=== PATIENT | female | born 1960 | race Caucasian/White ===

== ENCOUNTER 2017-07-25 05:47 | Observation (INO) | payer OTHER ==
[~2017-07-25] VITALS: Ht 172.7 cm; Wt 71.7 kg
[2017-07-25] MEDS ORDERED: MULT-65 PO (06:16)
[2017-07-25] MEDS ORDERED: LANS30CA PO (06:16)
[2017-07-25] MEDS ORDERED: OXYC1TAB63 PO (06:16)
[2017-07-25] MEDS ORDERED: TRAZ50TA12 PO (06:16)
[2017-07-25] MEDS ORDERED: HYDR25TA5 PO (06:16)
[2017-07-25] MEDS ORDERED: METF500T PO (06:16)
[2017-07-25] MEDS ORDERED: DULO1CAP3 PO (06:16)
[2017-07-25] MEDS ORDERED: CYAN1TAB24 PO (06:16)
[2017-07-25] MEDS ORDERED: VALA500T PO (06:16)
[2017-07-25] MEDS ORDERED: LOVA10TA PO (06:16)
[2017-07-25] MEDS ORDERED: METH750T PO (06:16)
[2017-07-25] MEDS ORDERED: GENTAMICIN SULFATE 80 MG/2 ML VIAL ONE (06:40)
[2017-07-25] MEDS ORDERED: LACTATED RINGER'S 1000 ML IV PRN (06:45)
[2017-07-25] MEDS ORDERED: CHLORHEXIDINE GLUCONATE 4% SOLN 120 ML BTL TOPICAL SCH (06:45)
[2017-07-25] MEDS ORDERED: CHLORHEXIDINE GLUCONATE 2 % 1 PACK (2 CLOTHS) TOPICAL PRN (06:45)
[2017-07-25] MEDS ORDERED: VANCOMYCIN 1 GM/200 ML INJ 200 ML IV SCH (06:45)
[2017-07-25] MEDS ORDERED: METOPROLOL TARTRATE 25 MG TAB PO PRN (06:45)
[2017-07-25] MEDS ORDERED: SODIUM CHLORID 0.9% 500 ML IV PRN (06:45)
[2017-07-25] MEDS ORDERED: ceFAZolin 2 GM PREMIX 50 ML ONE (07:37)
[2017-07-25] MEDS ORDERED: BUPIVACAINE/EPINEPHRINE 0.5% PF 10 ML VIAL ONE (08:41)
[2017-07-25] MEDS ORDERED: MORPHINE SULFATE 4 MG/ML INJ IV PUSH PRN (09:00)
[2017-07-25] MEDS ORDERED: BISACODYL 10 MG SUPP RECTAL PRN (09:00)
[2017-07-25] MEDS ORDERED: NON-FORMULARY DRUG (Lansoprazole 30 MG) PO SCH (09:00)
[2017-07-25] MEDS ORDERED: Post-op Orders (for Pharmacy) XX ONE (09:00)
--- NOTE | 2017-07-25 09:00 | PD.OP ---
cc: Jack Wheeler. Operative Report Date of Surgery: Jul 25, 2017 Preoperative Diagnosis: Status post ACDF C4-5, C5-6, C6-7. 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 Placement of intra-facet bilateral cages C6-7. Single level segmental instrumentation, C6-7. Left posterior iliac crest bone graft Anesthesia: General Surgeon: Jack Wheeler C++ Quant Developer(s): YOLANDA Florentino Operation and Findings: EBL: 50 cc INDICATIONS: This patient is a 57-year-old female status post previous cervical fusion performed elsewhere. She had a 2 level fusion after a previous single level fusion. The C4-5 and C5-6 levels have healed, yet the C6-7 level has a failed fusion with motion. The patient continued to be painful and symptomatic. She presents for surgical treatment. NOTE: Angélica Florentino PA-C was present for the entire surgical procedure as my resident care assistant. In my medical opinion her skill and care was necessary for proper management of this patient PROCEDURE: The patient was brought the operating room and anesthetized in the supine position. The patient was positioned prone on a Parish table. The arms were placed out along the side and taping was utilized to ensure adequate visualization. AP and lateral radiographic images were used identifying the proper level and allowing excellent exposure for purpose of the cervical fusion. A timeout was done and antibiotics were given within a routine time window. A small incision was made over the left iliac crest bone graft. A series of cores of bone graft were harvested with a special percutaneous device. The bone graft was taken to the back table to be mixed with stem cell bone graft for the later part of the case Using AP and lateral radiographs, skin markings were made. On the right side and 18-gauge spinal needle was placed down to the proper level. The left side a separate incision was made and we used the [employer] SpARAX system. Exposure was afforded down to the proper level. Under visualization, a chisel was placed down to the C6-7 level. This was confirmed under radiographs to be in proper position. Exposure was satisfactory. This is placed down into the facet joint at that level. A decorticating device was utilized decorticating the bone of the facet above and below. A retractor was placed down over the access chisel allowing exposure to the joint and exposure to the articular cartilage. A drilling system was utilized removing cartilage and bone this region followed by a rasp. On the back table demineralized bone matrix was mixed with Nucel stem cells and a autogenous bone graft. A combination of both these were then paced placed into proper cages. The cages were impacted into the proper position and checked again under AP and lateral fluoroscopic images. A transfixation screw was placed into the cage having excellent fixation into the facet joint of the level above. The back side of the cage was filled with additional bone graft which was tamped into position. The retractor was removed. On the right side a separate incision was made. Using the likewise sequence of access to the same level, an incision was made allowing visualization for placement of an access chisel which was placed into the joint followed by decortication with excellent visualization. A final retractor was positioned holding this while we were able to drill and use the rasp. The joint was prepared and we created a space for the cage. The cage was filled with bone graft and impacted in proper position. A transfixation screw was fixated at that time and alignment was satisfactory. Additional bone graft placed along the posterior aspect of the cage and the facet joint and was tamped into position.. Intraoperative x-rays in AP and lateral plane showed excellent positioning and stabilization . The wound was irrigated copiously. Hemostasis was controlled. The fascia was closed with interrupted Vicryl suture skin and subcutaneous tissue with 3-0 Vicryl suture followed by Dermabond. The sponge count needle counts and sponge counts were all correct. The patient tolerated the procedure well as taken to the recovery room in satisfactory condition. FINDINGS: There was motion at the C6-7 level. Cage position appeared to be very satisfactory. There was no complication that was appreciated. Jack Wheeler MD Jul 25, 2017 08:59
[2017-07-25] MEDS ORDERED: OXYC1TAB36 PO (09:05)
[2017-07-25] MEDS ORDERED: MIDAZOLAM HCL 2 MG/2 ML VIAL ONE (09:18)
[2017-07-25] MEDS ORDERED: *MEPERIDINE 25 MG INJ VIAL PERIprocedural Use ONLY ONE (09:21)
[2017-07-25] MEDS ORDERED: ONDANSETRON ODT 4 MG TAB PO PRN (09:30)
[2017-07-25] MEDS ORDERED: DO NOT ADM ANY ANTICOAGULANT DRUGS PRN (09:30)
[2017-07-25] MEDS ORDERED: *morphine SULFATE 4 MG/ML PERIprocedure ONLY ONE (09:30)
[2017-07-25] MEDS ORDERED: *PROMETHAZINE 25 MG/ML VIAL PERIprocedural use ONLY ONE (09:59)
[2017-07-25] MEDS: METHOCARBAMOL 500 MG TAB PO SCH ×2 (10:00→20:59)
[2017-07-25] MEDS: PANTOPRAZOLE SOD 40 MG DELAYED RELEASE TAB PO SCH (10:00)
[2017-07-25] MEDS: metFORMIN HCL 500 MG TAB PO SCH ×2 (10:00→17:19)
[2017-07-25] MEDS: LACTATED RINGER'S 1000 ML INJ 1,000 ML IV SCH ×2 (10:00→22:30)
[2017-07-25] MEDS: HYDROCHLOROTHIAZIDE 25 MG TAB PO SCH (11:00)
[2017-07-25 11:45] VITALS: BP 127/73; PULSE 100; RESP 16; TEMP 97.2; O2SAT 96
[2017-07-25] MEDS ORDERED: PHENYLEPH/NS 1000 MCG/10 ML SYR IV ONE (12:00)
[2017-07-25] MEDS ORDERED: ONDANSETRON HCL 4 MG/2 ML VIAL IV ONE (12:00)
[2017-07-25] MEDS ORDERED: GLYCOPYRROLATE 1 MG/5 ML SYRINGE IV PUSH ONE (12:00)
[2017-07-25] MEDS ORDERED: LIDOCAINE HCL 1% PF 5 ML SYRINGE OTHER ONE (12:00)
[2017-07-25] MEDS ORDERED: PROPOFOL 200 MG/20 ML AMP IV ONE (12:00)
[2017-07-25] MEDS ORDERED: ROCURONIUM INJ 50 MG/5 ML SYRINGE IV PUSH ONE (12:00)
[2017-07-25] MEDS ORDERED: DEXAMETHASONE SOD PHOS 4 MG/ML VIAL IV ONE (12:00)
[2017-07-25] MEDS ORDERED: LACTATED RINGER'S 1000 ML INJ 2,000 ML IV ONE (12:00)
[2017-07-25] MEDS ORDERED: NEOSTIGMINE 5 MG/5 ML SYRINGE IV PUSH ONE (12:00)
[2017-07-25 16:00] VITALS: BP 117/63; PULSE 95; RESP 16; TEMP 97.7; O2SAT 95
[2017-07-25] MEDS ORDERED: PADIMATE (CHAPSTICK) 4.5 GM TUBE TOPICAL PRN (16:00)
--- NOTE | 2017-07-25 16:40 | RADRPT ---
EXAM DATE: 07/25/2017 2:25 PM EDT AGE/SEX: 57 years / Female INDICATIONS: C 6-7 cervical fusion. CLINICAL DATA: This is the patient's initial encounter. Patient reports that signs and symptoms have been present for 1 day and indicates a pain score of Nonresponsive. MEDICAL/SURGICAL HISTORY: Non-responsive. Non-responsive. COMPARISON: No prior [place] exams available for comparison. FINDINGS: Intraoperative films demonstrates stable fusion at C5-6. Discs placed anteriorly at C4-5 and C6-7 CONCLUSION: Intraoperative films as described above Electronically signed by: Abdelrahman Moncada MD 07/25/2017 4:39 PM EDT
[2017-07-25] MEDS: oxyCODONE/ACETAMINOPHEN 10 MG/325 MG TAB PO PRN ×2 (17:41→22:59)
[2017-07-25 20:00] VITALS: BP 123/70; PULSE 84; RESP 17; TEMP 98.1; O2SAT 94
[2017-07-25] MEDS ORDERED: DULoxetine HCl DR 60 MG CAP PO SCH (21:00)
[2017-07-25] MEDS ORDERED: valACYclovir HCL 500 MG TAB PO SCH (21:00)
[2017-07-25] MEDS ORDERED: traZODone HCL 50 MG TAB PO SCH (21:00)
[2017-07-25] MEDS ORDERED: PRAVASTATIN SOD 10 MG TAB PO SCH (21:00)
[2017-07-26 00:01] VITALS: BP 100/60; PULSE 68; RESP 17; TEMP 97.7; O2SAT 93
[2017-07-26 04:00] VITALS: BP 116/63; PULSE 72; RESP 17; TEMP 97.8; O2SAT 93
[2017-07-26] MEDS: oxyCODONE/ACETAMINOPHEN 10 MG/325 MG TAB PO PRN ×2 (05:38→14:31)
[2017-07-26] MEDS ORDERED: DOCUSATE SODIUM 100 MG CAP PO SCH (09:00)
[2017-07-26] MEDS: HYDROCHLOROTHIAZIDE 25 MG TAB PO SCH (09:00)
[2017-07-26] MEDS ORDERED: MULTIVITAMINS/MINERALS THERAPEUTIC TAB PO SCH (09:00)
[2017-07-26] MEDS ORDERED: diphenhydrAMINE HCL 25 MG CAP PO PRN (10:00)
[2017-07-26] MEDS: metFORMIN HCL 500 MG TAB PO SCH (10:23)
[2017-07-26] MEDS: METHOCARBAMOL 500 MG TAB PO SCH (10:23)
[2017-07-26] MEDS: PANTOPRAZOLE SOD 40 MG DELAYED RELEASE TAB PO SCH (10:23)
[2017-07-26] MEDS: LACTATED RINGER'S 1000 ML INJ 1,000 ML IV SCH (11:00)
[2017-07-26 12:00] VITALS: BP 113/68; PULSE 82; RESP 16; TEMP 97.7; O2SAT 93
--- NOTE | 2017-07-26 13:01 | PD.ORT.PN ---
Subjective Subjective Remarks Neck doing 'as expected'. Posterior neck pain but better with medications. She was struggling urinating last night and this morning but 'just went' right before I came in the room. States that has improved. Her itching has abated. Throat sore but ok. No new arm pain. No new CP or SOB. Objective Vitals Vital Signs Date Time Temp Pulse Resp B/P (MAP) Pulse Ox O2 Delivery O2 Flow Rate FiO2 07/26/17 12:00 97.7 82 16 113/68 (83) 93 07/26/17 04:00 97.8 72 17 116/63 (80) 93 07/26/17 00:01 97.7 68 17 100/60 (73) 93 07/25/17 20:00 98.1 84 17 123/70 (87) 94 07/25/17 16:00 97.7 95 16 117/63 (81) 95 07/25/17 14:52 20 I/O 07/25/17 07/25/17 07/25/17 07/26/17 07/26/17 07/26/17 07:00 15:00 23:00 07:00 15:00 23:00 Intake Total 1440 ml 360 ml Output Total 1425 ml Balance 15 ml 360 ml Intake Oral 240 ml 360 ml IV Total 200 ml Other 1000 ml Output Urine Total 1400 ml Estimated Blood Loss 25 ml Bladder Scan Volume Amount 435 ml # Voids 3 2 Objective Remarks Sitting up in chair In cervical collar NAD VSS Posterior C/S Dressing c/d/i, no drainage, mild spasm, no erythema +motor triceps, +sens, +nvi Assessment & Plan Ortho Post Op Day #: 1 Problem List: Assessment and Plan pod#1 s/p PSF C67, bone graft Ortho stable. Pain controlled. PO pain meds as needed. Urinating better. Encouraged hydration. Dressing clean. Ok to shower beginning pod#2. Cervical collar real time analyst for 2-4 weeks. Ok to remove for hygiene only. Ok to d/c home today. F/U in weeks as scheduled. Angélica Florentino Jul 26, 2017 13:01
--- NOTE | 2017-07-26 13:20 | HHI.DCPOC ---
Discharge Care Plan Your Health Problems Are: Difficulty with ADL Incision/Drains Swelling Urinary Difficulties Goals to Promote Your Health * To prevent worsening of your condition and complications * To maintain your health at the optimal level Directions to Meet Your Goals Take your medications as prescribed Follow your dietary instruction Follow activity as directed Keep your appointments as scheduled Take your immunizations and boosters as scheduled If your symptoms worsen call your PCP, if no PCP go to Urgent Care Center or Emergency Room Smoking is Dangerous to Your Health. Avoid second hand smoke Call the 24-hour hour crisis hotline for domestic abuse at Angélica Florentino Jul 26, 2017 13:20
--- NOTE | 2017-07-26 13:21 | HHI.DS ---
Discharge Summary Admission Date Jul 25, 2017 at 08:57 Discharge Date: Jul 26, 2017 Admitting Diagnosis see below Diagnosis: (1) Cervical spinal stenosis Diagnosis: Principal ICD Codes: M48.02 - Spinal stenosis, cervical region (2) Cervical spine instability Diagnosis: Principal ICD Codes: M53.2X2 - Spinal instabilities, cervical region Procedures Posterior cervical fusion C67, DTRAX, bone graft Brief History This is a 57 year old female patient... previous cervical fusion...nonunion C67 PE at Discharge Sitting up in chair In cervical collar NAD VSS Posterior C/S Dressing c/d/i, no drainage, mild spasm, no erythema +motor triceps, +sens, +nvi Pt Condition on Discharge: Stable Discharge Disposition: Discharge Home Discharge Instructions Diet Instructions: Diabetic Diet Activities You Can Perform: See Additionl Instruction Activities to Avoid: Strenuous Activity Additional Activity Instruc.: Full-time cervical spine brace New Medications: Oxycodone HCl/Acetaminophen (Oxycodone-Acetaminophen 10-325) 10 Mg-325 Mg Tablet 1 TAB PO Q4H PRN for Pain, #42 TAB Continued Medications: Cyanocobalamin (B12) 1,000 Mcg Tab 500 MCG PO DAILY Duloxetine DR (Duloxetine DR) 60 Mg Capdr 60 MG PO HS, #30 CAP 0 Refills Hydrochlorothiazide (Hydrochlorothiazide) 25 Mg Tab 25 MG PO HS, #30 TAB 0 Refills Lansoprazole (Lansoprazole) 30 Mg Capdr 30 MG PO DAILY, CAP 0 Refills Lovastatin (Lovastatin) 10 Mg Tab 10 MG PO HS for Cholesterol Management, #30 TAB 0 Refills Metformin (Metformin) 500 Mg Tab 500 MG PO BIDPC for Blood Sugar Management, #60 TAB 0 Refills Methocarbamol (Methocarbamol) 750 Mg Tab 750 MG PO BID for Muscle Spasm, #180 TAB 0 Refills Multiple Vitamin (Multi-Vitamin Daily) 1 Tab Tab 1 TAB PO DAILY for Nutritional Supplement, TAB 0 Refills Oxycodone-Acetaminophen (Oxycodone-Acetaminophen) 5-325 mg Tab 1 TAB PO Q4H PRN for PAIN, TAB 0 Refills Trazodone (Trazodone) 50 Mg Tab 50 MG PO HS for Control Depression, #30 TAB 0 Refills Valacyclovir (Valacyclovir) 500 Mg Tab 500 MG PO HS for Mgmt Viral Infection, #30 TAB 0 Refills Angélica Florentino Jul 26, 2017 13:21
== END 2017-07-26 15:03 | disposition home or self-care (01) ==
LOC: HSDC 05:47 → HSDI 08:57 → N06A 11:46
PROVIDERS: ADMIT Orthopaedic Surgery Orthopaedic Surgery of the Spine; ATTEND Orthopaedic Surgery Orthopaedic Surgery of the Spine
DX: M48.02 Spinal stenosis, cervical region (principal); M53.2X2 Spinal instabilities, cervical region; I10 Essential (primary) hypertension; E11.9 Type 2 diabetes mellitus without complications; Z79.84 Long term (current) use of oral hypoglycemic drugs
CPT/HCPCS: 00600; 20937; 22600; 22853; 72040; 76000; 82948; 94150; 96374; C1713; G0378; J0690; J1100; J1580; J2175; J2250; J2270; J2370; J2405; J2550; J2710; J3010; J3370; J7120; L0150